=== PATIENT | male | born 1985 | race Caucasian/White ===

== ENCOUNTER 2022-01-02 12:37 | Emergency (ER) | payer BC ==
[2022-01-02] MEDS ORDERED: Sodium Chloride 0.9% 1,000 ML IV ONE (13:01)
[2022-01-02] MEDS ORDERED: Ondansetron 4 MG/2 ML SDV IVPUSH ONE (13:01)
[2022-01-02] MEDS ORDERED: LORazepam 2 MG/ML SDV IVPUSH ONE (13:01)
[2022-01-02 13:44] LABS: BLOOD UREA NITROGEN,BUN 17 mg/dL (7.0-18.0); CARBON DIOXIDE,CO2 25.6 mmol/L (21.0-32.0); CHLORIDE,CL 102 mmol/L (98-107); GLUCOSE RANDOM 105 mg/dL (74-106); LIPASE 106 U/L (73-393); POTASSIUM,K 3.4 mmol/L (3.5-5.1); SODIUM,NA 139 mmol/L (136-148)
[2022-01-02] MEDS ORDERED: Potassium Chloride 20 MEQ Tab.ER PO ONE (13:48)
[2022-01-02] MEDS ORDERED: Magnesium Oxide 400 MG Tab PO ONE (13:48)
[2022-01-02 14:10] LABS: CORONAVIRUS COVID-19 NAA POSITIVE (NEGATIVE); INFLUENZA A NAA NEGATIVE (NEGATIVE); INFLUENZA B NAA NEGATIVE (NEGATIVE)
== END 2022-01-02 14:39 | disposition home or self-care (01) ==
LOC: MW.ED 12:37
DX: U07.1 COVID-19 (principal); E78.00 Pure hypercholesterolemia, unspecified; I10 Essential (primary) hypertension; F17.210 Nicotine dependence, cigarettes, uncomplicated; E66.9 Obesity, unspecified; Z68.36 Body mass index [BMI] 36.0-36.9, adult; Z91.048 Other nonmedicinal substance allergy status; Z86.73 Personal history of transient ischemic attack (TIA), and cerebral infarction without residual deficits
CPT/HCPCS: 0240U; 36415; 70450; 71045; 80053; 83605; 83690; 83735; 84443; 84484; 85025; 86140; 93005; 96374; 96375; 99285; A9270; J2060; J2405; J7030